=== PATIENT | female | born 1980 | race American Indian/Alaskan Native ===

== ENCOUNTER 2018-06-04 19:37 | Emergency (ER) | payer BC, OTHER ==
[2018-06-04 19:52] VITALS: BP 137/71
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
[2018-06-05] MEDS ORDERED: NORCO 5/325 ONE (01:44)
[2018-06-05] MEDS ORDERED: NORCO 5/325 PO ONE (01:51)
== END 2018-06-05 01:55 | disposition home or self-care (01) ==
LOC: ED 19:37
DX: M62.830 Muscle spasm of back (principal); Z98.51 Tubal ligation status
CPT/HCPCS: 99282